=== PATIENT | female | born 1940 | race Caucasian/White ===

== ENCOUNTER 2018-08-31 09:14 | Outpatient (CLI) | payer MEDICARE, BC ==
[2018-08-31 09:50] LABS: #Basophils 0.1 thou/uL (0.0-0.2); #Eosinphils 0.2 thou/uL (0.0-0.7); #Lymphocytes 1.4 thou/uL (1.20-3.40); #Monocytes 0.5 thou/uL (0.11-0.59); #Neutrophils 2.4 thou/uL (1.40-6.50); %Eosinophils 4.6 % (0.0-10.0); %Lymphocytes 31.5 % (21.0-51.0); %Monocytes 9.9 % (0.0-10.0); ALT (SGPT) 19 U/L (8-55); AST (SGOT) 25 U/L (5-34); Albumin 4.3 g/dL (3.4-4.8); Alkaline Phosphatase 78 U/L (40-150); Anion Gap 12 mmol/L (10-20); Anisocytosis SLIGHT = 6-15 cells (100X) (0-5/hpf); BUN (Urea Nitrogen) 15 mg/dL (9.8-20.1); Bilirubin, Total 0.9 mg/dL (0.2-1.2); Calc. Creatinine Clearance 0 mL/min (70-130); Calcium 9.5 mg/dL (7.8-10.44); Carbon Dioxide 27 mmol/L (23-31); Cardiac Risk 3.6 (Less than 4.5); Chloride 106 mmol/L (98-107); Cholesterol 162 mg/dl (< 200 Desired); Estimated GFR-MDRD 72; Globulin 2.8 g/dL (2.4-3.5); Glucose 98 mg/dL (83-110); HDL Cholesterol 45 mg/dL (>60 Neg Risk); Hemoglobin 13.1 g/dL (12.0-16.0); LDL Cholesterol, Calculated 96 mg/dL; MDiff Complete? YES; Mean Corpuscular HGB CONC 31.2 g/dL (32.0-36.0); Mean Corpuscular Hemoglobin 24.4 pg (27.0-31.0); Mean Corpuscular Volume 78.2 fL (78.0-98.0); Mean Platelet Volume 7.4 fL (7.4-10.4); Platelet Count 131 thou/uL (130-400); Platelet Morphology Comment Appears Adequate; Potassium 4.2 mmol/L (3.5-5.1); Protein, Total 7.1 g/dL (6.0-8.3); RBC Distribution Width 12.6 % (11.5-14.5); Red Blood Cell (RBC) Count 5.36 mill/uL (4.20-5.40); Sodium 141 mmol/L (136-145); Triglycerides 105 mg/dL (Less than 150); White Blood Cell (WBC) Count 4.6 thou/uL (4.8-10.8)
--- NOTE | 2018-09-01 16:25 | MMO ---
Bilateral MAMMO Bilat Screen [facility]DI. CLINICAL HISTORY: Patient is 78 years old and is seen for screening. The patient has the following family history of breast cancer: mother, at age 40. The patient has a history of Skin cancer. VIEWS: The views performed were: bilateral craniocaudal and bilateral mediolateral oblique. FILMS COMPARED: The present examination has been compared to prior imaging studies performed at [facility] on 09/09/2016, and at [place] on 08/24/2015. This study has been interpreted with the assistance of computer-aided detection. MAMMOGRAM FINDINGS: There are scattered fibroglandular densities. There are benign appearing calcifications seen in both breasts. There are no suspicious masses, suspicious calcifications, or new areas of architectural distortion. IMPRESSION: THERE IS NO MAMMOGRAPHIC EVIDENCE OF MALIGNANCY. A ROUTINE FOLLOW-UP MAMMOGRAM IN 1 YEAR IS RECOMMENDED. ACR BI-RADS Category 2 - Benign finding MAMMOGRAPHY NOTE: 1. A negative mammogram report should not delay a biopsy if a dominant of clinically suspicious mass is present. 2. Approximately 10% to 15% of breast cancers are not detected by mammography. 3. Adenosis and dense breasts may obscure an underlying neoplasm.
== END 2018-08-31 09:15 | disposition home or self-care (01) ==
LOC: SCSMAMMO 09:14
PROVIDERS: ATTEND Internal Medicine
DX: Z12.31 Encounter for screening mammogram for malignant neoplasm of breast (principal); Z80.3 Family history of malignant neoplasm of breast; Z85.828 Personal history of other malignant neoplasm of skin; Z13.220 Encounter for screening for lipoid disorders; R73.9 Hyperglycemia, unspecified; R71.8 Other abnormality of red blood cells
CPT/HCPCS: 36415; 77067; 80053; 80061; 85025

== ENCOUNTER 2018-09-27 10:14 | Outpatient (CLI) | payer OTHER ==
--- NOTE | 2018-09-27 11:35 | CT ---
EXAM: CT Pulmonary Lung Scan PROVIDED CLINICAL HISTORY: Nicotine dependence. Tobacco abuse. COMPARISON: None FINDINGS: A small pleural based 4 mm pulmonary nodule is seen at the posterior inferior left lung base. No bessy tional pulmonary nodule or mass is seen, and there is no pleural effusion. Lack of each intravenous contrast limits evaluation of vascular structures and mediastinum. However, no definite enlarged lymph nodes are appreciated. Vascular calcifications are seen in the thoracic aorta. Splenic granuloma is present. An 11 mm and 9 millimeter hypodense lesions are seen in the anterior as pect left hepatic lobe which are too small to further characterize. Mild degenerative changes are seen in the spine. IMPRESSION: 1. LUNG RADS category 2 - left lower lobe pulmonary nodule. Continued annual screening with low-dose CT scan examination in 12 months is recommended. 2. Category S - no additional clinically or potentially significant additional findings which require follow-up.
== END 2018-09-27 10:15 | disposition home or self-care (01) ==
LOC: CT 10:14
PROVIDERS: ATTEND Internal Medicine
DX: Z77.22 Contact with and (suspected) exposure to environmental tobacco smoke (acute) (chronic) (principal); R91.1 Solitary pulmonary nodule
CPT/HCPCS: G0297

== ENCOUNTER 2023-08-27 09:22 | Outpatient (CLI) | payer MEDICARE, BC | END 2023-08-27 09:23 | disposition home or self-care (01) | LOC: SCSMRI 09:22 | PROVIDERS: ATTEND Psychiatry & Neurology Neurology | DX: R41.3 Other amnesia (principal) | CPT/HCPCS: 70553 ==

== ENCOUNTER 2024-07-27 12:55 | Emergency (ER) | payer MEDICARE, BC ==
[~2024-07-27 12:55] MED LIST: Iopamidol-370 76% 500 ML MDV (1 ML CHARGE) ONE
[2024-07-27 14:08] LABS: #Basophils 0.04 10x3/uL (0.0-0.2); %Basophils 0.6 % (0.0-1.0); %Lymphocytes 26.1 % (21.0-51.0); %Monocytes 7.8 % (0.0-10.0); Hematocrit 46.1 % (36.0-47.0); Hemoglobin 14.9 g/dL (12.0-16.0); Mean Corpuscular HGB CONC 32.3 g/dL (32.0-36.0); Mean Corpuscular Hemoglobin 26.1 pg (27.0-31.0); Mean Corpuscular Volume 80.7 fL (78.0-98.0); Mean Platelet Volume 10.7 fL (7.4-10.4); Platelet Count 166 10x3/uL (130-400); RBC Distribution Width 13.6 % (11.5-14.5); Red Blood Cell (RBC) Count 5.71 mill/uL (4.20-5.40)
[2024-07-27 14:29] LABS: CRP,High Sensitivity (Inhouse) Less than 0.02 mg/dL (< or = 0.5)
[2024-07-27 14:30] LABS: ALT (SGPT) 12 U/L (Less than 34); AST (SGOT) 27 U/L (11-34); Albumin 4.3 g/dL (3.1-4.5); Alkaline Phosphatase 52 U/L (40-110); Anion Gap 14 mmol/L (10-20); BUN (Urea Nitrogen) 14 mg/dL (9.8-20.1); Bilirubin, Total 1.5 mg/dL (0.3-1.2); Calc. Creatinine Clearance 0 mL/min (70-130); Calcium 9.9 mg/dL (7.8-10.44); Carbon Dioxide 24 mmol/L (23-31); Chloride 103 mmol/L (98-107); Estimated GFR 70; Glucose 86 mg/dL (83-110); Potassium 3.7 mmol/L (3.5-5.1); Protein, Total 7.3 g/dL (5.8-8.1)
[2024-07-27 15:06] LABS: Sodium 140 mmol/L (136-145)
[2024-07-27 17:08] LABS: Troponin I Less than 0.010 ng/mL (< 0.028)
== END 2024-07-27 17:10 | disposition home or self-care (01) ==
LOC: ERS 12:55
DX: M54.10 Radiculopathy, site unspecified (principal); M79.641 Pain in right hand; R53.1 Weakness
CPT/HCPCS: 36415; 70450; 71275; 72125; 73130; 74174; 80053; 84484; 85025; 86141; 93005; 93971; 99284; Q9967; 87635